=== PATIENT | female | born 1940 | race Caucasian/White ===

== ENCOUNTER → 2024-09-20 12:52 | Outpatient (REF) | payer MEDICARE, BC, SELFPAY | LOC: HWRAD 12:52 | PROVIDERS: ATTENDING PHYSICIAN Family Medicine | DX: J20.2 Acute bronchitis due to streptococcus (principal) | CPT/HCPCS: 71046 ==

== ENCOUNTER → 2025-09-18 13:05 | Outpatient (REF) | payer MEDICARE, BC, SELFPAY | LOC: HWRAD 13:05 | PROVIDERS: ATTENDING PHYSICIAN Internal Medicine Rheumatology; FAMILY PHYSICIAN Family Medicine | DX: M13.0 Polyarthritis, unspecified (principal) | CPT/HCPCS: 73110; 73130 ==

== ENCOUNTER 2025-11-05 17:33 | Emergency (ER) | payer MEDICARE, BC, SELFPAY ==
[2025-11-05 17:41] VITALS: BP 180/86
--- NOTE | 2025-11-05 20:34 | ED.GENMED ---
History of Present Illness
General
Chief Complaint: Fall
Time Seen by Provider: 11/05/25 20:22
History of Present Illness
History of Present Illness:
85-year-old female presents the emergency after mechanical fall with head injury. She reports right-sided headache as well as left fifth digit pain and right knee pain. Able to ambulate. Does not take anticoagulants. No dizziness, nausea,
vomiting, or LOC
Past History
Past History
ED Past Medical History: Other (Asthma, hypertension,)
Social History
Tobacco: Non-smoker
Alcohol: None
Family History
Family History: Negative Diabetes or Early CAD
Review of Systems
Review of Systems
Allergies reviewed?: Yes
All Other Systems: ROS reviewed and negative except as documented in HPI and ROS
Phy Exam
Physical Exam
Physical Exam:
GEN: Well appearing, NAD, WDWN
HEENT: Minor ecchymosis to the right forehead just lateral to the eyebrow oral mucosa moist, no scleral icterus, no nasal congestion
Cardiac: Regular rate
Lung: No respiratory distress, no tachypnea
MSK: No gross deformity or injuries. Mallet finger deformity of the left fifth distal phalanx. Right nail with mild ecchymosis, no overt swelling, normal range of motion and no bony tenderness
Skin: Good color, no pallor or jaundice, no rashes
Neuro: AO x3; CN II-XII grossly intact. BUE strength 5/5 in all pickett, sensation intact and symmetric. BLE strength 5/5 in all pickett, sensation intact and symmetric
Psych: Calm, cooperative
Course
Orders/Labs/Results
Orders:
Orders
11/05/25 17:45
CT Head W/o Iv Contrast Urgent
Comment:
Reason For Exam: fall +head strike
CR Hand - Left Min 3 Views Urgent
Comment:
Reason For Exam: fall/pain
Vital Signs
Initial and Last Documented VS:
Initial Vital Signs
Temp Pulse Resp BP Pulse Ox
98 F 88 20 180/86 96
11/05/25 17:41 11/05/25 17:41 11/05/25 17:41 11/05/25 17:41 11/05/25 17:41
Last Documented Vital Signs
Temp Pulse Resp BP Pulse Ox
98 F 88 20 180/86 96
11/05/25 17:41 11/05/25 17:41 11/05/25 17:41 11/05/25 17:41 11/05/25 20:35
MDM/Problems Addressed
MDM/Problems Addressed:
CT imaging unremarkable. Left fifth digit mallet finger due to avulsion fracture of the dorsal plate of the distal phalanx. Placed in extensor splint, she has prior established care with an outpatient hand surgeon and she plans to follow-up with
them. Right knee exam is unremarkable no indication for imaging
*Pulse Oximetry
SaO2: 96
Oxygen Mode of Delivery: Room air
Patient hypoxic: no
*Critical Care Note
Total Time (30-74mins, 75-104mins- exclusive of procedures): Not Applicable
ED Attending Note
-
Portions of this chart may have been created with voice recognition software.� Occasional wrong word or��sound alike� substitutions may have occurred due to the inherent limitations of voice recognition software.
Discharge Plan
Departure
Patient Disposition: Home (Routine Discharge)
Date of Disposition: 11/05/25
Time of Disposition: 20:34
Patient with high blood pressure during this ER visit?: No
Discharge Problem:
Mallet deformity of left little finger
Instructions: Common Finger Injuries ED
Prescriptions:
No Action
losartan 50 MG tablet
100 mg PO DAILY
omeprazole 40 MG capsule,delayed release(DR/EC)
40 mg PO DAILY
aspirin [Aspir-Low] 81 MG tablet,delayed release (DR/EC)
81 mg PO Daily
albuterol sulfate 1 PUFF HFA aerosol inhaler
1 puff inhalation R [id number] PRN (Reason: Asthma)
nebivolol [Bystolic] 5 MG tablet
5 mg PO Daily
cholecalciferol (vitamin D3) 2,000 UNIT tablet
2,000 unit PO Daily
fluticasone furoate-vilanterol [Breo Ellipta] 1 EACH blister with device
1 ea IH Daily
cyclosporine [Restasis] 10 DROPS dropperette
1 drp OPHTHALMIC BID
hydrochlorothiazide 12.5 MG tablet
12.5 mg PO DAILY
Patient Comments:
Pt skips doses at times due to frequent urination
methylprednisolone 4 MG tablet
4 mg PO TAPER Qty: 21 0RF
cefuroxime axetil 500 MG tablet
500 mg PO BID Qty: 12 0RF
cephalexin [Keflex] 500 MG capsule
500 mg PO BID Qty: 14 0RF
Referrals:
Joseluis Adams MD [Family Provider, Family Practice]
Activity Restrictions/Additional Instructions:
Use the splint at all times until you follow up with your hand surgeon
Interventions
Interventions:
*General Assessment Last Done: 11/05/25 17:41
*Neglect/Abuse Screening Last Done: 11/05/25 17:41
*Risk Screen - Suicide (C-SSRS) Last Done: 11/05/25 17:41
*Nursing Disposition Last Done: 11/05/25 20:53
Discharge Date and Time
Discharge Date/Time: 11/05/25 20:54
Print Language: [id number]
== END 2025-11-05 20:54 | disposition home or self-care (01) ==
LOC: EMR 17:33
PROVIDERS: EMERGENCY PHYSICIAN Emergency Medicine; FAMILY PHYSICIAN Family Medicine
DX: S62.637A Displaced fracture of distal phalanx of left little finger, initial encounter for closed fracture (principal); M20.012 Mallet finger of left finger(s); S00.83XA Contusion of other part of head, initial encounter; M25.561 Pain in right knee; W18.39XA Other fall on same level, initial encounter; S09.90XA Unspecified injury of head, initial encounter; I10 Essential (primary) hypertension; J45.909 Unspecified asthma, uncomplicated
CPT/HCPCS: 99284; 29130; 70450; 73130